=== PATIENT | male | born 1975 | race Caucasian/White ===

== ENCOUNTER 2016-09-18 19:18 | Emergency (ER) | payer OTHER ==
[~2016-09-18] VITALS: Ht 152.4 cm; Wt 108.9 kg
[~2016-09-18 19:18] MED LIST: ACCUNEB SO1.25 MG/1; ACID CONTROL20 MG PO; ALLERGY10 M1 PO; ALPRAZOLAM; ALPRAZOLAM PO; ALPRAZOLAM2 MG PO; APAP500 PO; ATIVAN2 MG PO; AUGMENTIN; AUGMENTIN 875875 MG PO; AUGMENTIN400 MG/53 PO; BACTROBAN CREAM30 G1 TOP; BENTYL20 MG PO; BENZTROPINE MESY2 MG PO; BETHANECHOL CHLORIDE PO; CAMPRAL 333 MG333 M1 PO; CARDURA2 MG PO; CATAPRES-TTS 10.1 MG TD; CELEXA20 MG PO; CIPROFLOXACIN500 M1 PO; CIPROFLOXACIN500 M3 PO; CLARITIN10 M2 PO; CLEOCIN HCL150 MG PO; CLONAZEPAM 1 MG1 M1 PO; CRANBERRY PO; DEPAKENE250 MG PO; DEPAKOTE ER500 MG PO; DEPAKOTE500 MG PO; DESYREL50 MG PO; DIPHENHYDRAM50 MG/M2 IM; DIPHENHYDRAMINE50 MG PO; DOCUSATE SODIU100 MG PO; DOXYCYCLINE 10100 M1 PO; ENSURE237 ML PO; FERRO-TIME325 MG PO; FLONASE 0.05%50 MCG INH; FLONASE 0.05%50 MCG NASAL; FOLIC ACID1 MG PO; FUROSEMIDE 20 M20 M1 PO; GABAPENTIN100 MG PO; HALDOL DECAN50 MG/M1; HALDOL DECAN50 MG/M1 IM; HALDOL DECAN50 MG/M1 SUBQ; HALDOL PO; HALOPERIDOL 5 MG5 MG PO; HALOPERIDOL IM; HALOPERIDOL5 MG/1 M1 IM; HYDROXYZINE HCL50 MG PO; IBUPROFEN 400400 M2 PO; IBUPROFEN 600600 M1 PO; INDERAL 20 MG T20 M1 PO; K-DUR 20 MEQ T20 MEQ PO; K-DUR10 MEQ PO; LAMICTAL 25 MG25 M1 PO; LAMICTAL XR50 MG PO; LAMOTRIGINE25 M2 PO; LASIX 40 MG TAB40 M1 PO; LASIX 40 MG TAB40 M2 PO; LEVAQUIN 500 M500 MG PO; MACROBID 100 M100 M1 PO; MACRODANTIN100 MG PO; METHADONE HCL 110 M1 PO; MOM; MOM PO; MUCINEX600 MG PO; MULTIPLE VITAM1 EAC3 PO; MUPIROCIN22 GM TOP; NEURONTIN 300M300 M2 PO; NEURONTIN300 MG PO; NICOTINE TRANSD14 M1 TD; NOHOMEMEDICATIONS; NORCO 5-325 TA1 EACH PO; OLANZAPINE10 MG PO; OXYBUTYNIN 5 MG5 M1 PO; PANTOPRAZOLE SO40 M1 PO; PENICILLIN VK500 M1 PO; PERCOCET 5-3251 EACH PO; PHENAZOPYRIDIN100 M1 PO; POTASSIUM CHLO20 ME1 PO; POTASSIUM CHLORIDE PO; POTASSIUM20 PO; PRAZOSIN 1 MG CA1 M1 PO; PRAZOSIN HCL2 MG PO; PROPRANOLOL 1010 M1 PO; PROPRANOLOL 20M20 M1 PO; PROTONIX 20 MG20 MG PO; PROTONIX40 M1 PO; PROVENTIL HFA6.7 G1 INH; PROZAC 20 MG20 M1 PO; PROZAC40 MG PO; PYRIDIUM100 MG PO; QUETIAPINE FUM400 MG PO; RIFAMPIN 300 M300 M1 PO; RIFAMPIN 300 M300 MG PO; SEROQUEL 50 MG50 M1 PO; SEROQUEL PO; SEROQUEL XR 30300 MG PO; SEROQUEL200 MG PO; THERA-M CAPLET1 EAC1 PO; THERA-M CAPLET1 EACH PO; TOPAMAX 100 MG100 MG PO; TRAMADOL 50 MG50 MG PO; TRAZODONE PO; TRIAMCINOLONE; UNICOMPLEX M TA1 TA1 PO; URECHOLINE 25 M25 M1 PO; URISTAT PO; VALIUM10 MG PO; VENTOLIN17 GM; VENTOLIN17 GM INH; VICODIN ES 7.51 EACH PO; VITAMIN B-1100 M1 PO; VITAMIN B-1100 MG PO; XANAX 0.5 MG0.5 M1 PO; XARELTO20 MG PO; ZOFRAN ODT4 MG PO; ZYPREXA 10 MG T10 MG PO; does not take meds
[2016-09-18] MEDS ORDERED: TRAMADOL 50 MG50 MG PO (19:57)
[2016-09-18 20:19] LABS: URINE BILIRUBIN NEGATIVE (Negative); URINE BLOOD 1+ (Negative); URINE COLOR YELLOW; URINE GLUCOSE-RANDOM* NEGATIVE (Negative); URINE KETONES NEGATIVE (Negative); URINE LEUKOCYTES-REFLEX 2+ (Negative); URINE PROTEIN (DIPSTICK) NEGATIVE (Negative); URINE SPECIFIC GRAVITY <= 1.005 (1.003-1.035); URINE UROBILINOGEN 0.2 E.U./dl (0.2-1.0)
[2016-09-18 20:25] LABS: CASTS None Seen /LPF (None Seen); CRYSTALS None Seen /LPF (None Seen); SQUAMOUS None Seen /LPF (0-3); URINE RBC 0-2 Rare /HPF (0-2); URINE WBC-REFLEX 6-15 Few /HPF (0-5)
[2016-09-18 20:36] LABS: HEMATOCRIT 39.5 % (42.0-52.0); HEMOGLOBIN 13.6 gm/dL (14.0-18.0); MCH 32.1 pg (26.0-34.0); MCHC 34.3 g/dL (28.0-37.0); MCV 93.5 fL (80.0-100.0); PLATELET COUNT 113 thou/uL (150-400); RBC 4.22 mil/uL (4.50-6.00); RDW 13.5 % (10.5-14.5); WBC 8.8 thou/uL (4.0-11.0)
[2016-09-18 20:39] LABS: MANUAL DIFF YES
[2016-09-18 20:44] LABS: CALCIUM 8.8 mg/dL (8.5-10.1); POTASSIUM 3.4 mmol/L (3.5-5.1)
[2016-09-18] MEDS ORDERED: PREDNISONE 20 M20 MG PO (20:51)
[2016-09-18] MEDS ORDERED: TESSALON PERLE100 MG PO (20:51)
[2016-09-18] MEDS ORDERED: BACTRIM DS TAB1 EACH PO (20:52)
[2016-09-18 20:59] LABS: ABSOLUTE NEUTROPHILS 5.8 thou/uL (1.4-8.2); TOTAL CELL COUNT 100
[2016-09-18 21:31] VITALS: BP 117/65
== END 2016-09-18 21:45 | disposition home or self-care (01) ==
LOC: ER 19:18
PROVIDERS: Physician Assistant
DX: J20.9 Acute bronchitis, unspecified (principal); N39.0 Urinary tract infection, site not specified; E87.6 Hypokalemia; I10 Essential (primary) hypertension; F31.9 Bipolar disorder, unspecified; Z88.5 Allergy status to narcotic agent; Z91.048 Other nonmedicinal substance allergy status; Z88.8 Allergy status to other drugs, medicaments and biological substances; Z87.891 Personal history of nicotine dependence

== ENCOUNTER 2017-07-27 17:09 | Emergency (ER) | payer OTHER ==
[~2017-07-27] VITALS: Ht 182.9 cm; Wt 113.4 kg
--- NOTE | ~2017-07-27 | EKG ---
[address] [place] [address] ELECTROCARDIOGRAM REPORT Name: JENNY BYRD Room #: DEP [facility]#: [id number] Admission: 07/27/17 Attend Phys: Discharge: 07/27/17 Date of : 77 Report #: [id number] THIS REPORT FOR: //name// [facility] ED Test Date: 2017-07-27 Test Time: 17:19:41 Pat Name: JENNY BYRD Department: Room: Gender: M Lead Installer: NAOMY : 1975 Requested By: Luiza Willis Order Number: [id number] MD: Jimy Shoemaker Measurements Intervals [place] Rate: 84 P: 50 [place]: 180 QRS: -1 QRSD: 92 T: 32 QT: 376 QTc: 445 Interpretive Statements Sinus rhythm Probable left atrial enlargement Compared to ECG 02/26/2013 04:12:14 No significant changes Electronically Signed On 07-28-2017 13:22:36 RN TRAINING by Jimy Shoemaker [email or web address] <ELECTRONICALLY SIGNED> By: Jimy Shoemaker MD 07/28/17 1322 1719 18 Jimy Shoemaker MD /NATHAN
--- NOTE | ~2017-07-27 | EKG ---
[place] [address] [address] [place] [address] ELECTROCARDIOGRAM REPORT Name: JENNY BYRD Room #: [facility].#: [id number] Admission: Attend Phys: Discharge: Date of : 77 Report #: [id number] THIS REPORT FOR: //name// [facility] ED Test Date: 2017-07-27 Test Time: 17:19:41 Pat Name: JENNY AGUIRRENETT Department: Room: Gender: M Doctor'S Assistant: NAOMY : 1975 Requested By: Luiza Willis Order Number: [id number] MD: Measurements Intervals [place] Rate: 84 P: 50 [place]: 180 QRS: -1 QRSD: 92 T: 32 QT: 376 QTc: 445 Interpretive Statements Sinus rhythm Probable left atrial enlargement No previous ECG available for comparison [email or web address] By: 18 18 Epiphany EpiphanyMD /EPI
[~2017-07-27 17:09] MED LIST changes: +BACTRIM DS TAB1 EACH PO; +PREDNISONE 20 M20 MG PO; +TESSALON PERLE100 MG PO
[2017-07-27 17:54] LABS: BASOPHILS 0.7 % (0.0-2.0); EOSINOPHILS 7.2 % (0.0-3.0); HEMATOCRIT 41.6 % (42.0-52.0); HEMOGLOBIN 14.1 gm/dL (14.0-18.0); LYMPHOCYTES 26.9 % (24.0-44.0); MCH 31.7 pg (26.0-34.0); MCHC 33.9 g/dL (28.0-37.0); MCV 93.5 fL (80.0-100.0); MONOCYTES 6.8 % (1.0-8.0); PLATELET COUNT 154 thou/uL (150-400); POLYS 58.4 % (36.0-66.0); RBC 4.45 mil/uL (4.50-6.00); RDW 13.6 % (10.5-14.5); WBC 6.8 thou/uL (4.0-11.0)
[2017-07-27 18:04] LABS: ANION GAP 9 mmol/L (7-16); BUN 11 mg/dL (7-18); CALCIUM 8.7 mg/dL (8.5-10.1); CHLORIDE 103 mmol/L (98-107); CO2 26 mmol/L (21-32); GLUCOSE 126 mg/dL (74-106); POTASSIUM 4.1 mmol/L (3.5-5.1); SODIUM 138 mmol/L (136-145)
[2017-07-27 18:13] LABS: TROPONIN-I < 0.04 ng/mL (<0.06)
[2017-07-27 18:50] VITALS: BP 126/81
[2017-07-27 19:24] LABS: APTT 29.1 Seconds (24.5-32.8); D-DIMER 0.19 ug/mLFEU (0.19-0.50); PROTIME 10.5 Seconds (9.3-11.4)
== END 2017-07-27 19:50 | disposition home or self-care (01) ==
LOC: ER 17:09
PROVIDERS: Emergency Medicine
DX: S20.212A Contusion of left front wall of thorax, initial encounter (principal); R55 Syncope and collapse; I10 Essential (primary) hypertension; F31.9 Bipolar disorder, unspecified; Z88.5 Allergy status to narcotic agent; F17.210 Nicotine dependence, cigarettes, uncomplicated; Z88.8 Allergy status to other drugs, medicaments and biological substances; X58.XXXA Exposure to other specified factors, initial encounter; Y93.89 Activity, other specified; Y92.89 Other specified places as the place of occurrence of the external cause; Y99.8 Other external cause status

== ENCOUNTER 2019-08-01 02:11 | Emergency (ER) | payer OTHER ==
[~2019-08-01] VITALS: Ht 182.9 cm; Wt 111.1 kg
[2019-08-01] MEDS ORDERED: XARELTO15 MG PO (03:00)
[2019-08-01] MEDS ORDERED: TRIHEXYPHENIDYL2 M1 PO (03:00)
[2019-08-01] MEDS ORDERED: CYCLOBENZAPRINE10 MG PO (03:01)
[2019-08-01] MEDS ORDERED: INVEGA SUS234 MG/1.5 IM (03:01)
[2019-08-01] MEDS ORDERED: CLONAZEPAM 1 MG1 M1 PO (03:01)
[2019-08-01] MEDS ORDERED: METFORMIN HCL500 MG PO (03:02)
[2019-08-01] MEDS ORDERED: OXYBUTYNIN 5 MG5 M2 PO (03:02)
[2019-08-01 03:36] LABS: URINE BILIRUBIN NEGATIVE (Negative); URINE BLOOD 1+ (Negative); URINE CLARITY SL CLOUDY; URINE COLOR YELLOW; URINE GLUCOSE-RANDOM* 3+ (Negative); URINE KETONES NEGATIVE (Negative); URINE LEUKOCYTES-REFLEX NEGATIVE (Negative); URINE PROTEIN (DIPSTICK) NEGATIVE (Negative); URINE SPECIFIC GRAVITY >= 1.030 (1.005-1.035); URINE UROBILINOGEN 0.2 E.U./dl (0.2-1.0)
[2019-08-01 03:37] LABS: URINE NITRITE-REFLEX POSITIVE (Negative)
[2019-08-01 03:44] LABS: CALCIUM OXALATE >10 Many /LPF (None Seen); CASTS None Seen /LPF (None Seen); MUCUS 4-6 Moderate strn/LPF (None Seen); SQUAMOUS 4-10 Moderate /LPF (0-3); URINE RBC 3-10 Few /HPF (0-2); URINE WBC-REFLEX 0-5 Rare /HPF (0-5)
[2019-08-01] MEDS ORDERED: PYRIDIUM200 MG PO (03:51)
[2019-08-01] MEDS ORDERED: AUGMENTIN 875-1 EACH PO (03:51)
[2019-08-01 04:01] VITALS: BP 134/95
== END 2019-08-01 04:03 | disposition home or self-care (01) ==
LOC: ER 02:11
PROVIDERS: Emergency Medicine
DX: N39.0 Urinary tract infection, site not specified (principal); I10 Essential (primary) hypertension; F17.210 Nicotine dependence, cigarettes, uncomplicated; Z79.899 Other long term (current) drug therapy

== ENCOUNTER 2020-04-14 16:00 | Emergency (ER) | payer OTHER ==
[~2020-04-14] VITALS: Ht 182.9 cm; Wt 106.6 kg
[~2020-04-14 16:00] MED LIST changes: +AUGMENTIN 875-1 EACH PO; +CYCLOBENZAPRINE10 MG PO; +INVEGA SUS234 MG/1.5 IM; +METFORMIN HCL500 MG PO; +OXYBUTYNIN 5 MG5 M2 PO; +PYRIDIUM200 MG PO; +TRIHEXYPHENIDYL2 M1 PO; +XARELTO15 MG PO
[2020-04-14 16:46] LABS: URINE BILIRUBIN NEGATIVE (Negative); URINE BLOOD NEGATIVE (Negative); URINE CLARITY SL CLOUDY; URINE COLOR YELLOW; URINE GLUCOSE-RANDOM* NEGATIVE (Negative); URINE KETONES NEGATIVE (Negative); URINE LEUKOCYTES-REFLEX 2+ (Negative); URINE NITRITE-REFLEX POSITIVE (Negative); URINE PROTEIN (DIPSTICK) NEGATIVE (Negative); URINE UROBILINOGEN 0.2 E.U./dl (0.2-1.0)
[2020-04-14 16:55] LABS: AMORPHOUS URATES Moderate /LPF (None Seen); CASTS None Seen /LPF (None Seen); SQUAMOUS None Seen /LPF (0-3); URINE RBC None Seen /HPF (0-2); URINE WBC-REFLEX 6-15 Few /HPF (0-5)
[2020-04-14 17:23] LABS: BASOPHILS 0.4 % (0.0-2.0); EOSINOPHILS 1.8 % (0.0-3.0); HEMATOCRIT 34.8 % (42.0-52.0); HEMOGLOBIN 11.8 gm/dL (14.0-18.0); LYMPHOCYTES 15.1 % (24.0-44.0); MCH 32.4 pg (26.0-34.0); MCV 95.3 fL (80.0-100.0); MONOCYTES 10.6 % (1.0-8.0); PLATELET COUNT 141 thou/uL (150-400); POLYS 72.1 % (36.0-66.0); RBC 3.65 mil/uL (4.50-6.00); RDW 14.2 % (10.5-14.5); WBC 11.1 thou/uL (4.0-11.0)
[2020-04-14 17:33] LABS: CALCIUM 8.8 mg/dL (8.5-10.1); CREATININE 0.8 mg/dL (0.7-1.3); POTASSIUM 4.1 mmol/L (3.5-5.1)
[2020-04-14 17:39] LABS: ALBUMIN 2.9 g/dL (3.4-5.0); TOTAL BILIRUBIN 0.5 mg/dL (0.2-1.0); TOTAL PROTEIN 6.4 g/dL (6.4-8.2)
[2020-04-14] MEDS ORDERED: LEVOFLOXACIN750 MG PO (19:02)
[2020-04-14 19:37] VITALS: BP 127/66
== END 2020-04-14 20:43 | disposition home or self-care (01) ==
LOC: ER 16:00
PROVIDERS: Physician Assistant
DX: N39.0 Urinary tract infection, site not specified (principal); N45.1 Epididymitis; N43.3 Hydrocele, unspecified; I10 Essential (primary) hypertension; G40.909 Epilepsy, unspecified, not intractable, without status epilepticus; F31.9 Bipolar disorder, unspecified; F41.9 Anxiety disorder, unspecified; F17.210 Nicotine dependence, cigarettes, uncomplicated; Z86.14 Personal history of Methicillin resistant Staphylococcus aureus infection; Z98.890 Other specified postprocedural states; Z88.5 Allergy status to narcotic agent; Z79.2 Long term (current) use of antibiotics; Z79.899 Other long term (current) drug therapy; Z88.8 Allergy status to other drugs, medicaments and biological substances; Z91.048 Other nonmedicinal substance allergy status; Z88.6 Allergy status to analgesic agent

== ENCOUNTER 2020-04-18 11:37 | Emergency (ER) | payer OTHER ==
[~2020-04-18] VITALS: Ht 182.9 cm; Wt 106.6 kg
[~2020-04-18 11:37] MED LIST changes: +LEVOFLOXACIN750 MG PO
[2020-04-18 11:55] VITALS: BP 99/65
== END 2020-04-18 13:07 | disposition home or self-care (01) ==
LOC: ER 11:37
DX: Z46.6 Encounter for fitting and adjustment of urinary device (principal); I10 Essential (primary) hypertension; F17.210 Nicotine dependence, cigarettes, uncomplicated; Z79.2 Long term (current) use of antibiotics; Z79.899 Other long term (current) drug therapy; Z88.5 Allergy status to narcotic agent; Z91.048 Other nonmedicinal substance allergy status